=== PATIENT | male | born 1955 | race Caucasian/White ===

== ENCOUNTER 2024-09-06 07:25 | Day surgery (SDC) | payer MEDICARE, OTHER ==
[2024-09-02 11:28] VITALS: BMI 30.7
[2024-09-06] MEDS ORDERED: Bupivacaine HCl 0.5%/Epinephrine 1:200,000/PF 30 ml Vial ONE (07:28)
[2024-09-06] MEDS ORDERED: PROPOFOL 20 ML ONE (07:52)
[2024-09-06] MEDS ORDERED: Rocuronium Bromide 10 MG/ML (10ML VIAL) ONE (07:53)
[2024-09-06] MEDS ORDERED: Lidocaine 1% PF 5 ML VIAL ONE (07:53)
[2024-09-06] MEDS ORDERED: CEFAZOLIN 2 GM VIAL ONE (07:55)
[2024-09-06] MEDS ORDERED: PHENYLEPHRINE-NS 100 MCG/ML 10 ML SYRINGE ONE (08:28)
[2024-09-06] MEDS ORDERED: Ondansetron PF 4 MG/2 ML Vial ONE (09:27)
[2024-09-06] MEDS ORDERED: SUGAMMADEX SODIUM 200 MG/2 ML VIAL ONE ×2 (09:27→09:31)
[2024-09-06] MEDS ORDERED: HYDROcodone/Acetaminophen 5/325 mg Tablet ONE (10:31)
== END 2024-09-06 11:25 | disposition home or self-care (01) ==
LOC: CSHSDC 07:25
PROVIDERS: ATTEND Surgery
PROC: 0YU54JZ Supplement Right Inguinal Region with Synthetic Substitute, Percutaneous Endoscopic Approach (ICD-10-PCS; principal; 2024-09-06)
DX: K40.90 Unilateral inguinal hernia, without obstruction or gangrene, not specified as recurrent (principal); I10 Essential (primary) hypertension; I73.9 Peripheral vascular disease, unspecified; Z96.641 Presence of right artificial hip joint; Z79.899 Other long term (current) drug therapy
CPT/HCPCS: 49650; C1781; J2405; J2704; J3010; S2900